=== PATIENT | male | born 1960 | race Caucasian/White ===

== ENCOUNTER 2021-06-03 09:44 | Emergency (ER) | payer BC ==
[~2021-06-03 09:44] MED LIST: CALCIUM CITRAT1 EA11 PO; CALCIUM PO; ELIQUIS2.5 MG PO; FINASTERIDE5 MG PO; FLOMAX 0.4 MG0.4 MG PO; PANTOPRAZOLE SO40 MG PO; PERCOCET 10-321 EACH PO; TAMSULOSIN HCL0.4 MG PO; VITAMIN D35000 UNI1 PO; [UNRECOGNIZED DRUG - OTHER] PO; [UNRECOGNIZED DRUG - OTHER] PO
[2021-06-03 10:38] LABS: HEMOGLOBIN 15.1 gm/dl (14.0-17.5); RED BLOOD COUNT 4.81 M/UL (4.20-5.50); WHITE BLOOD COUNT 9.1 K/UL (4.5-11.0)
[2021-06-03 11:03] LABS: BUN/CREATININE RATIO 10 (0-10)
[2021-06-03] MEDS ORDERED: ENDOCET 5-3251 EACH PO (15:23)
[2021-06-03] MEDS ORDERED: ZOFRAN ODT 4 MG4 MG SL (15:39)
== END 2021-06-03 16:07 | disposition home or self-care (01) ==
LOC: ER1 09:44
PROVIDERS: Emergency Medicine
DX: N13.2 Hydronephrosis with renal and ureteral calculous obstruction (principal)
CPT/HCPCS: 80053; 81001; 83690; 85025; 96374; 96375; 96376; 99284; J2270; J2405; Q9967